=== PATIENT | male | born 1995 | race Caucasian/White ===

== ENCOUNTER 2018-03-20 01:53 | Emergency (ER) | payer SELFPAY ==
--- NOTE | 2018-03-20 02:05 | ER Report ---
History and Physical Time Seen By MD: 02:05 Hx. of Stated Complaint: PT REPORTS L SIDED ABDO PAIN SUDDEN ONSET 20 MIN AGO, RADIATING TO BACK HPI/ROS CHIEF COMPLAINT: Left flank pain HISTORY OF PRESENT ILLNESS: 22-year-old male presents ambulatory to the ER complaining of sudden onset of severe left flank pain approximately 2030 minutes prior to arrival. Patient reports his whole family has a history of kidney stones. He's never had one before. He thinks he might be having one now. He reports severe nausea when the pain gets really intense. He's not vomited. REVIEW OF SYSTEMS: Respiratory: No cough, no dyspnea. Cardiovascular: No chest pain, no palpitations. Gastrointestinal: As above Musculoskeletal: As above Allergies: Coded Allergies: No Known Drug Allergies (Unverified , 03/20/18) Home Meds Active Scripts Ondansetron Hcl (ZOFRAN) 4 Mg Tablet, 4 MG PO Q6H PRN for NAUSEA/VOMITING, #12 Prov:MARGARITA GIBSON DO 03/20/18 Hydrocodone Bit/Acetaminophen (NORCO 5-325 TABLET) 1 Each Tablet, 1-2 EACH PO Q4-6H PRN for PAIN, #15 TAB Prov:MARGARITA GIBSON DO 03/20/18 Reviewed Nurses Notes: Yes Old Medical Records Reviewed: Yes Constitutional Vital Sign - Last 24 Hours 03/20/18 03/20/18 03/20/18 03/20/18 01:53 01:59 02:00 02:08 Pulse ??? 67 62 Resp 16 B/P (MAP) 113/67 113/67 (82) Pulse Ox 94 96 O2 Delivery Room Air 03/20/18 03/20/18 03/20/18 03/20/18 02:23 02:38 02:44 02:50 Pulse ??? 61 B/P (MAP) 104/56 (72) Pulse Ox 99 97 O2 Flow Rate 1.0 03/20/18 03/20/18 03/20/18 03/20/18 02:53 03:00 03:08 03:20 Temp 98.0 Pulse 58 ??? B/P (MAP) ???/??? (1285) Pulse Ox 96 03/20/18 03/20/18 03/20/18 03/20/18 03:23 03:30 03:38 04:18 Pulse 77 58 85 Resp 16 B/P (MAP) 124/74 (91) 132/85 (101) Pulse Ox 100 98 92 O2 Delivery Room Air Physical Exam General Appearance: The patient is alert, has no immediate need for airway protection and no current signs of toxicity.. Moderate distress, slightly pale appearing, vital signs stable, afebrile Eyes: Pupils equal and round no injection. Respiratory: Chest is non tender, lungs are clear to auscultation. Cardiac: regular rate and rhythm Gastrointestinal: Abdomen is soft and non tender, no masses, bowel sounds normal. Mild left CVA tenderness Musculoskeletal: Neck: Neck is supple and non tender. Extremities have full range of motion and are non tender. Skin: No rashes or lesions. DIFFERENTIAL DIAGNOSIS: After history and physical exam differential diagnosis was considered for flank pain including but not limited to musculoskeletal causes, kidney stone, pyelonephritis, shingles, and intra-abdominal causes such as diverticulitis and appendicitis. Medical Decision Making Data Points Result Diagram: 03/20/18 0250 03/20/18 0250 Laboratory Hematology Test 03/20/18 02:07 03/20/18 02:50 Urine Color Yellow Urine Clarity Slightly-cloudy Urine pH 5.0 pH (4.8-9.5) Urine Specific [place] 1.032 Urine Protein 30 mg/dL (NEGATIVE) Urine Glucose (UA) Negative mg/dL (NEGATIVE) Urine Ketones 80 mg/dL (NEGATIVE) Urine Blood Small (NEGATIVE) Urine Nitrite Negative (NEGATIVE) Urine Bilirubin Negative (NEGATIVE) Urine Urobilinogen 4.0 mg/dL (0.2-1.9) Urine Leukocyte Esterase Negative (NEGATIVE) Urine RBC 24 /HPF (0-2/HPF) Urine WBC 8 /HPF (0-5/HPF) Urine Squamous Epithelial Cells Few /LPF (</=FEW) Urine Transitional Epithelial Cells Few /LPF (NONE-FEW) Urine Bacteria Few /HPF (NONE-FEW) Urine Mucus Few /HPF (NONE-FEW) Red Blood Count 4.99 M/uL (4.00-5.60) Mean Corpuscular Volume 89.9 fL (80.0-96.0) Mean Corpuscular Hemoglobin 30.9 pg (26.0-33.0) Mean Corpuscular Hemoglobin Concent 34.3 g/dL (32.0-36.0) Red Cell Distribution Width 14.3 % (11.5-14.5) Mean Platelet Volume 7.8 fL (7.2-11.1) Neutrophils (%) (Auto) 46.9 % (39.4-72.5) Lymphocytes (%) (Auto) 43.0 % (17.6-49.6) Monocytes (%) (Auto) 8.6 % (4.1-12.4) Eosinophils (%) (Auto) 1.1 % (0.4-6.7) Basophils (%) (Auto) 0.4 % (0.3-1.4) Nucleated RBC Relative Count (auto) 0.1 /100WBC Neutrophils # (Auto) 2.3 K/uL (2.0-7.4) Lymphocytes # (Auto) 2.1 K/uL (1.3-3.6) Monocytes # (Auto) 0.4 K/uL (0.3-1.0) Eosinophils # (Auto) 0.1 K/uL (0.0-0.5) Basophils # (Auto) 0.0 K/uL (0.0-0.1) Nucleated RBC Absolute Count (auto) 0.00 K/uL Sodium Level 140 mmol/L (137-145) Potassium Level 3.3 mmol/L (3.5-5.0) Chloride Level 105 mmol/L (98-107) Carbon Dioxide Level 22 mmol/L (22-30) Blood Urea Nitrogen 16 mg/dl (9-21) Creatinine 1.00 mg/dl (0.66-1.25) Glomerular Filtration Rate Calc > 60.0 Random Glucose 114 mg/dl (75-110) Calcium Level 8.7 mg/dl (8.4-10.2) Total Bilirubin 0.5 mg/dl (0.2-1.3) Aspartate Amino Transf (AST/SGOT) 20 U/L (0-35) Alanine Aminotransferase (ALT/SGPT) 39 U/L (0-56) Alkaline Phosphatase 74 U/L (0-126) Total Protein 6.1 g/dl (6.3-8.2) Albumin 3.8 g/dl (3.5-5.0) Amylase Level 94 U/L (0-110) Lipase 148 U/L (23-300) Chemistry Test 03/20/18 02:07 03/20/18 02:50 Urine Color Yellow Urine Clarity Slightly-cloudy Urine pH 5.0 pH (4.8-9.5) Urine Specific [place] 1.032 Urine Protein 30 mg/dL (NEGATIVE) Urine Glucose (UA) Negative mg/dL (NEGATIVE) Urine Ketones 80 mg/dL (NEGATIVE) Urine Blood Small (NEGATIVE) Urine Nitrite Negative (NEGATIVE) Urine Bilirubin Negative (NEGATIVE) Urine Urobilinogen 4.0 mg/dL (0.2-1.9) Urine Leukocyte Esterase Negative (NEGATIVE) Urine RBC 24 /HPF (0-2/HPF) Urine WBC 8 /HPF (0-5/HPF) Urine Squamous Epithelial Cells Few /LPF (</=FEW) Urine Transitional Epithelial Cells Few /LPF (NONE-FEW) Urine Bacteria Few /HPF (NONE-FEW) Urine Mucus Few /HPF (NONE-FEW) White Blood Count 4.8 k/uL (4.5-11.0) Red Blood Count 4.99 M/uL (4.00-5.60) Hemoglobin 15.4 g/dL (14.0-18.0) Hematocrit 44.9 % (42.0-52.0) Mean Corpuscular Volume 89.9 fL (80.0-96.0) Mean Corpuscular Hemoglobin 30.9 pg (26.0-33.0) Mean Corpuscular Hemoglobin Concent 34.3 g/dL (32.0-36.0) Red Cell Distribution Width 14.3 % (11.5-14.5) Platelet Count 233 K/uL (150-450) Mean Platelet Volume 7.8 fL (7.2-11.1) Neutrophils (%) (Auto) 46.9 % (39.4-72.5) Lymphocytes (%) (Auto) 43.0 % (17.6-49.6) Monocytes (%) (Auto) 8.6 % (4.1-12.4) Eosinophils (%) (Auto) 1.1 % (0.4-6.7) Basophils (%) (Auto) 0.4 % (0.3-1.4) Nucleated RBC Relative Count (auto) 0.1 /100WBC Neutrophils # (Auto) 2.3 K/uL (2.0-7.4) Lymphocytes # (Auto) 2.1 K/uL (1.3-3.6) Monocytes # (Auto) 0.4 K/uL (0.3-1.0) Eosinophils # (Auto) 0.1 K/uL (0.0-0.5) Basophils # (Auto) 0.0 K/uL (0.0-0.1) Nucleated RBC Absolute Count (auto) 0.00 K/uL Glomerular Filtration Rate Calc > 60.0 Calcium Level 8.7 mg/dl (8.4-10.2) Total Bilirubin 0.5 mg/dl (0.2-1.3) Aspartate Amino Transf (AST/SGOT) 20 U/L (0-35) Alanine Aminotransferase (ALT/SGPT) 39 U/L (0-56) Alkaline Phosphatase 74 U/L (0-126) Total Protein 6.1 g/dl (6.3-8.2) Albumin 3.8 g/dl (3.5-5.0) Amylase Level 94 U/L (0-110) Lipase 148 U/L (23-300) Urinalysis Test 03/20/18 02:07 Urine Color Yellow Urine Clarity Slightly-cloudy Urine pH 5.0 pH (4.8-9.5) Urine Specific [place] 1.032 Urine Protein 30 mg/dL (NEGATIVE) Urine Glucose (UA) Negative mg/dL (NEGATIVE) Urine Ketones 80 mg/dL (NEGATIVE) Urine Blood Small (NEGATIVE) Urine Nitrite Negative (NEGATIVE) Urine Bilirubin Negative (NEGATIVE) Urine Urobilinogen 4.0 mg/dL (0.2-1.9) Urine Leukocyte Esterase Negative (NEGATIVE) Urine RBC 24 /HPF (0-2/HPF) Urine WBC 8 /HPF (0-5/HPF) Urine Squamous Epithelial Cells Few /LPF (</=FEW) Urine Transitional Epithelial Cells Few /LPF (NONE-FEW) Urine Bacteria Few /HPF (NONE-FEW) Urine Mucus Few /HPF (NONE-FEW) EKG/Imaging Imaging Results: CT scan of the abdomen and pelvis without contrast was obtained. The results of the study are COMPUTED TOMOGRAPHY ABDOMEN AND PELVIS WITHOUT INTRAVENOUS CONTRAST DATE OF EXAM: 03/20/2018 2:50 AM INDICATION: Left flank pain. COMPARISON: None. TECHNIQUE: Noncontrast abdomen and pelvis CT performed. Sagittal and coronal reconstructions were performed. One of the following dose optimization techniques was utilized in the performance of this exam: Automated exposure control; adjustment of the mA and/or kV according to the patient's size; or use of an iterative reconstruction technique. Specific details can be referenced i n the facility's radiology CT exam operational policy. FINDINGS: Lung bases: Clear. Liver: Normal. Gallbladder and bile ducts: Normal. Spleen: Normal Pancreas: Normal. Adrenals: Normal. Kidneys, ureters and bladder: There is a suspected punctate calculus at the left ureterovesicular junction as can be seen on image 445 of series 3. Associated mild left hydronephrosis and hydroureter. Retroperitoneum and aorta: Normal. GI tract, mesentery and peritoneum: Nonacute. Normal appendix. Prostate and seminal vesicles: Normal. Bones and soft tissues: No acute abnormality or suspicious lesion. IMPRESSION: Suspected punctate left ureterovesicular junction calculus with mild hydronephrosis and hydroureter. The study was read by the radiologist. I viewed the images myself on the PACS system. ED Course/Re-evaluation Clinical Indication for ER IV: Hydration, IV Access ED Course Patient was admitted to an examination room. H&P was done. The differential diagnoses was considered. On clinical examination. Patient has left flank pain sudden onset 30 minutes prior to arrival. He is a family history of kidney stones. He thinks she is passing a stone. His urinalysis just show microscopic hematuria. He is treated with IV fluid hydration, Zofran, Toradol and Dilaudid. His pain is improved. He is sent for CT, and there is notable hydronephrosis on the left side with a punctate kidney stone at the left UVJ. She'll be discharged home. A conservative treatment plan with hydrocodone and Zofran. He is advised ibuprofen for supplemental pain relief. He is given numbers to follow-up with urology if unimproved in 2-5 days. He is cautioned return to the ER for any worsening Decision to Disposition Date: Mar 20, 2018 Decision to Disposition Time: 02:41 Depart Departure Latest Vital Signs Vital Signs Date Time Temp Pulse Resp B/P (MAP) Pulse Ox O2 Delivery O2 Flow Rate FiO2 03/20/18 04:18 85 16 132/85 (101) 92 Room Air 03/20/18 03:20 98.0 03/20/18 02:50 1.0 Impression: Primary Impression: Renal colic on left side Condition: Improved Disposition: HOME OR SELF-CARE Referrals: MADELINE MONROE MD,MILY Suarez MD New Scripts Ondansetron Hcl (ZOFRAN) 4 Mg Tablet 4 MG PO Q6H PRN for NAUSEA/VOMITING, #12 Prov: MARGARITA GIBSON DO 03/20/18 Hydrocodone Bit/Acetaminophen (NORCO 5-325 TABLET) 1 Each Tablet 1-2 EACH PO Q4-6H PRN for PAIN, #15 TAB Prov: MARGARITA GIBSON DO 03/20/18 Patient Instructions: Kidney Stones (ED) Additional Instructions: Take ibuprofen 200 mg 3 tablets with food 3 times a day. Follow-up with urology if unimproved in 3-5 days MARGARITA GIBSON DO Mar 20, 2018 02:05
[2018-03-20] MEDS ORDERED: NS(*) 0.9% 1000 ML BAG 1,000 ML IV ONE (02:08)
[2018-03-20] MEDS ORDERED: KETOROLAC 30 MG/ML VIAL IVP ONE (02:10)
[2018-03-20] MEDS ORDERED: HYDROMORPHONE HCL 1 MG/ML SYRINGE IVP ONE (02:10)
[2018-03-20] MEDS ORDERED: ONDANSETRON 4 MG/2 ML VIAL IVP ONE (02:10)
[2018-03-20 02:56] LABS: PLATELET COUNT, AUTOMATED 233 K/uL (150-450)
--- NOTE | 2018-03-20 03:37 | RADIOLOGY IMAGING REPORT ---
FACILITY: [facility] PATIENT NAME: Darshan Ware : 1995 MR: [id number] V: [id number] EXAM DATE: [id number] ORDERING PHYSICIAN: MARGARITA GIBSON TECHNOLOGIST: [place] [facility] [place]han [place] : 1995 Visit/Account:[id number] Date of Sevice: 03/20/2018 COMPUTED TOMOGRAPHY ABDOMEN AND PELVIS WITHOUT INTRAVENOUS CONTRAST DATE OF EXAM: 03/20/2018 2:50 AM INDICATION: Left flank pain. COMPARISON: None. TECHNIQUE: Noncontrast abdomen and pelvis CT performed. Sagittal and coronal reconstructions were pe rformed. One of the following dose optimization techniques was utilized in the performance of this e xam: Automated exposure control; adjustment of the mA and/or kV according to the patient's size; or u se of an iterative reconstruction technique. Specific details can be referenced in the facility's r adiology CT exam operational policy. FINDINGS: Lung bases: Clear. Liver: Normal. Gallbladder and bile ducts: Normal. Spleen: Normal Pancreas: Normal. Adrenals: Normal. Kidneys, ureters and bladder: There is a suspected punctate calculus at the left ureterovesicular ju nction as can be seen on image 445 of series 3. Associated mild left hydronephrosis and hydroureter. Retroperitoneum and aorta: Normal. GI tract, mesentery and peritoneum: Nonacute. Normal appendix. Prostate and seminal vesicles: Normal. Bones and soft tissues: No acute abnormality or suspicious lesion. IMPRESSION: Suspected punctate left ureterovesicular junction calculus with mild hydronephrosis and h ydroureter. Report Dictated By: Rosendo Bruce MD at 03/20/2018 3:26 AM Report E-Signed By: Rosendo Bruce MD at 03/20/2018 3:33 AM WSN:[id number]
[2018-03-20] MEDS ORDERED: HYDR-653 PO (04:00)
[2018-03-20] MEDS ORDERED: ONDA4TAB97 PO (04:00)
[2018-03-20] MEDS ORDERED: ONDANSETRON 4 MG ODT TH SL ONE (04:05)
[2018-03-20] MEDS ORDERED: ACET/HYDROC 5/325MG TH ER ONLY 2 TAB/BOTTLE PO ONE (04:05)
[2018-03-20 04:18] VITALS: BP 132/85
== END 2018-03-20 04:17 | disposition home or self-care (01) ==
LOC: ER 02:22
DX: N13.2 Hydronephrosis with renal and ureteral calculous obstruction (principal); N13.4 Hydroureter
CPT/HCPCS: 36415; 74176; 81001; 82150; 83690; 85025; 96361; 96374; 96375; 99284; J1170; J1885; J2405; J7030; S0119; 82040; 82247; 82310; 82374; 82435; 82565; 82947; 84075; 84132; 84155; 84295; 84450; 84460; 84520